=== PATIENT | female | born 1995 | race American Indian/Alaskan Native ===

== ENCOUNTER 2017-11-30 14:43 | Outpatient (CLI) | payer SELFPAY ==
[2017-11-30 15:24] VITALS: BP 90/53
[2017-11-30] MEDS ORDERED: TYLENOL PO ONE (17:29)
[2017-11-30] MEDS ORDERED: LACTATED RINGERS 1,000 ML IV ONE (17:29)
--- NOTE | 2017-11-30 17:38 | Ultrasound Report ---
FINAL REPORT PROCEDURE: Obstetrical ultrasound. TECHNIQUE: Real-time transabdominal sonography of the uterus, placenta, amniotic fluid, adnexa, and fetus was performed with image documentation. Measurements were obtained to determine age/size. M-mode Doppler was used to document heartbeat. CPT 30103 HISTORY: , no care. COMPARISON: No prior studies are available for comparison. FINDINGS: There is a single viable fetus in cephalic presentation. Cardiac activity is documented at 125 beats per minute. There are no definite congenital anomalies. The placenta is grade 1 and fundal in location. The amniotic fluid index appears normal and measures 14.7 centimeters. The measured parameters are as follows: Biparietal diameter 7.6 centimeters, head circumference 28.9 centimeters, abdominal circumference 28.6 centimeters, femur length 6.4 centimeters. The calculated menstrual age is 32 weeks 0 days. The estimated date of confinement is 01/25/2018. IMPRESSION: Single viable fetus in cephalic presentation with a menstrual age of 32 weeks 0 days.
--- NOTE | 2017-11-30 17:40 | Ultrasound Report ---
FINAL REPORT PROCEDURE: Ultrasound biophysical profile without nonstress test. TECHNIQUE: Sonographic evaluation for breathing, movement, tone, and amniotic fluid volume was performed. CPT 54822 HISTORY: , no care, evaluate well-being. COMPARISON: No prior studies are available for comparison. FINDINGS: Amniotic fluid volume: 2. breathin. movement: 2. tone: 2. Score: 8 of 8. IMPRESSION: Normal biophysical profile.
[2017-11-30] MEDS ORDERED: BRETHINE SUB-Q ONE ×2 (19:08→19:30)
[2017-11-30 19:29] LABS: Bacteria,Urine 3+ /HPF (Negative); Bilirubin,Urine NEG (Negative); Blood,Urine NEG (Negative); Color,Urine Yellow (Yellow); Mucus,Urine 3+ /HPF; Protein,Urine <15 mg/dL mg/dL (Negative)
[2017-11-30 19:35] LABS: Amphetamine Screen,Urine PRESUMPTIVE NEGATIVE; Benzodiazepines Screen,Urine PRESUMPTIVE NEGATIVE; Cannabinoid Screen,Urine PRESUMPTIVE NEGATIVE; Cocaine Screen,Urine PRESUMPTIVE NEGATIVE; Methadone Screen,Urine PRESUMPTIVE NEGATIVE; Opiate Screen,Urine PRESUMPTIVE NEGATIVE
== END 2017-11-30 20:30 | disposition home or self-care (01) ==
LOC: TRG 14:43
PROVIDERS: ATTEND Obstetrics & Gynecology
DX: O47.03 False labor before 37 completed weeks of gestation, third trimester (principal); Z3A.32 32 weeks gestation of pregnancy
CPT/HCPCS: 59025; 76805; 76819; 80307; 81001; J3105; J7120; 96360; 96361; 96372

== ENCOUNTER 2018-01-28 07:29 | Inpatient (IN) | payer OTHER ==
[2018-01-28] MEDS ORDERED: LACTATED RINGERS 2,000 ML ONE (07:56)
[2018-01-28 08:21] LABS: Basophils % (Auto) 0.4 % (0.0-1.8); Eosinophils # (Auto) 0.2 K/mm3 (0.0-0.4); Eosinophils % (Auto) 1.5 % (0.0-4.3); Hematocrit 28.4 % (30.3-42.9); Hemoglobin 9.1 gm/dl (10.1-14.3); Lymphocytes # (Auto) 2.4 K/mm3 (1.2-5.4); Lymphocytes % (Auto) 21.1 % (13.4-35.0); Mean Corpuscular HGB Conc 32 % (30-34); Mean Corpuscular Hemoglobin 26 pg (28-32); Mean Corpuscular Volume 82 fl (79-97); Monocytes # (Auto) 0.7 K/mm3 (0.0-0.8); Monocytes % (Auto) 5.9 % (0.0-7.3); Platelet Count 241 K/mm3 (140-440); Red Blood Count 3.49 M/mm3 (3.65-5.03); Red Cell Distribution Width 14.7 % (13.2-15.2)
--- NOTE | 2018-01-28 08:23 | Anesthesia Day of Surgery ---
Anesthesia Day of Surgery - Day of Surgery Patient Examined: Yes Patient H&P Reviewed: Yes Patient is NPO: Yes
--- NOTE | 2018-01-28 08:23 | Anesthesia Consultation ---
Anesthesia Consult and Med Hx Date of service: 01/28/18 - Airway Anesthetic Teeth Evaluation: Good ROM Head & Neck: Adequate Mental/Hyoid Distance: Adequate Mallampati Class: Class II Intubation Access Assessment: Probably Good - Pre-Operative Health Status ASA Pre-Surgery Classification: ASA2 Proposed Anesthetic Plan: Epidural, Spinal - Pulmonary Hx Asthma: No COPD: No Hx Pneumonia: No - Cardiovascular System Hx Hypertension: No - Central Nervous System Hx Seizures: No Hx Psychiatric Problems: No - Endocrine Hx Renal Disease: No Hx End Stage Renal Disease: No Hx Hypothyroidism: No Hx Hyperthyroidism: No - Hematic Hx Anemia: No Hx Sickle Cell Disease: No - Other Systems Hx Alcohol Use: No
[2018-01-28] MEDS ORDERED: NARCAN 0.4 MG/1 ML IV PRN ×2 (08:30→11:00)
[2018-01-28] MEDS ORDERED: BICITRA PO NR (08:30)
[2018-01-28] MEDS ORDERED: REGLAN IV NR ×2 (08:30→09:00)
[2018-01-28] MEDS ORDERED: ANCEF/STERILE WATER 2 GM/20 ML 2 GM/20 ML SYRINGE IV NR (08:30)
[2018-01-28] MEDS ORDERED: BENADRYL IV PRN (08:30)
[2018-01-28] MEDS ORDERED: PHENERGAN PR PRN (08:30)
[2018-01-28] MEDS ORDERED: DILAUDID IV PRN (08:30)
[2018-01-28] MEDS ORDERED: PEPCID IV NR (08:30)
--- NOTE | 2018-01-28 08:39 | History and Physical Report ---
History of Present Illness Date of examination: 01/28/18 Date of admission: 01/28/18 08:19 Chief complaint: I broke my water and in labor History of present illness: 22 yo at weeks EDC 01/16/18 came in by EMS complaining of contractions and leaking since 7a. She has no care. She has not seen a physician for this . Patient was monitored with contractions and low baseline 120s. She denies any medical problems but she has allergy to latex. Her last was for questionable NRFT and sustained a csec. previous prior to that was a . Past History Past Medical History: no pertinent history Past Surgical History: section Family/Genetic History: none Social history: single. denies: smoking, alcohol abuse, prescription drug abuse - Obstetrical History Expected Date of Delivery: 01/16/18 Actual Gestation: 41 Week(s) 5 Day(s) : 3 Para: 2 Hx # Term Pregnancies: 2 Number of Pregnancies: 0 Spontaneous Abortions: 0 Induced : 0 Number of Living Children: 2 Medications and Allergies Allergies Allergy/AdvReac Type Severity Reaction Status Date / Time Latex, Natural Rubber AdvReac Intermediate Itching Verified 06/26/14 15:45 Home Medications Medication Instructions Recorded Confirmed Last Taken Type Vits96/Iron Fum/Folic 1 each PO QDAY 09/17/14 01/28/18 01/27/18 09:00 History [ Tablet] 1 Active Meds: Active Medications Citric Acid/Sodium Citrate (Bicitra) 30 ml PO ONCE NR Stop: 01/28/18 15:00 Diphenhydramine HCl (Benadryl) 12.5 mg IV Q2H PRN PRN Reason: Itching Famotidine (Pepcid) 20 mg IV ONCE NR Stop: 01/28/18 15:00 Hydromorphone HCl (Dilaudid) 0.5 mg IV Q5M PRN PRN Reason: Breakthrough Pain Stop: 01/28/18 15:00 Cefazolin Sodium (Ancef/Sterile Water 2 Gm/20 Ml) 2 gm in 20 mls @ 80 mls/hr IV PREOP NR; Protocol Stop: 01/28/18 15:00 Lactated Ringer's (Lactated Ringers) 1,000 mls @ 2,250 mls/hr IV PREOP GAIL Stop: 01/29/18 09:27 Oxytocin/Sodium Chloride (Pitocin/Ns 20 Unit/1000ml Drip) 20 units in 1,000 mls @ 0 mls/hr IV TITR GAIL Ketorolac Tromethamine (Toradol) 30 mg IV Q6H PRN PRN Reason: Pain, Moderate (4-6) Stop: 02/02/18 08:59 Metoclopramide HCl (Reglan) 10 mg IV ONCE NR Stop: 01/28/18 15:00 Naloxone HCl (Narcan 0.4 Mg/1 Ml) 0.2 mg IV Q2MIN PRN PRN Reason: Res Rate </= 8 or 02 SAT < 92% Ondansetron HCl (Zofran) 4 mg IV Q8H PRN PRN Reason: Nausea And Vomiting Promethazine HCl (Phenergan) 25 mg PO Q6H PRN PRN Reason: Nausea And Vomiting Promethazine HCl (Phenergan) 25 mg NV Q6H PRN PRN Reason: Nausea And Vomiting Sodium Chloride (Sodium Chloride Flush Syringe 10 Ml) 10 ml IV PRN PRN PRN Reason: flush Review of Systems All systems: negative Genitourinary: leakage of fluid, contractions - Vital Signs Vital signs: Vital Signs Pulse Pulse Ox 105 H 98 01/28/18 07:40 01/28/18 07:40 Temp Pulse Resp BP Pulse Ox 87 109/53 98 01/28/18 07:45 01/28/18 07:43 01/28/18 07:45 - Physical Exam Breasts: Positive: normal Cardiovascular: Regular rate, Normal S1 Lungs: Positive: Clear to auscultation Abdomen: Positive: normal appearance, soft, normal bowel sounds. Negative: distention, tenderness, guarding Genitourinary (Female): Positive: normal external genitalia, normal perenium Vulva: both: normal Vagina: Positive: normal moisture Uterus: Positive: normal size Anus/Rectum: Positive: normal perianal skin Extremities: Positive: normal Deep Tendon Reflex Grade: Normal +2 - Obstetrical FHR: auscultation normal Cervical Dilatation: 1 Uterine Contraction Pattern: Regular Uterine Tone Measurement Phase: Contraction Uterine Contraction Intensity: Moderate Results Result Diagrams: 01/28/18 07:30 Abnormal lab results 01/28/18 Range/Units 07:30 WBC 11.2 H (4.5-11.0) K/mm3 RBC 3.49 L (3.65-5.03) M/mm3 Hgb 9.1 L (10.1-14.3) gm/dl Hct 28.4 L (30.3-42.9) % MCH 26 L (28-32) pg Seg Neutrophils % 71.1 H (40.0-70.0) % Seg Neutrophils # 8.0 H (1.8-7.7) K/mm3 All other labs normal. Assessment and Plan A/P IUP 41+5 weeks post dates No care labs and IV initiated SROM with meconium contractions at 1cm GBS unknown discussed repeat csec with r/b/a of procedure reviewed which include but not limited to bleeding infection damage to pelvic and non pelvic organs risk of hysterectomy and she signed consents and voiced acceptance and will proceed to repeat csec Peds notified and will be at delivery
[2018-01-28 08:56] LABS: Rubella IgG Antibody Immune (Immune)
[2018-01-28] MEDS ORDERED: LACTATED RINGERS 1,000 ML IV SCH ×2 (09:00)
[2018-01-28] MEDS ORDERED: PHENERGAN PO PRN (09:00)
[2018-01-28] MEDS ORDERED: PITOCin/NS 20 UNIT/1000ML DRIP 20 UNITS/1,000 ML BAG IV SCH ×3 (09:00→11:00)
[2018-01-28] MEDS ORDERED: SODIUM CHLORIDE FLUSH SYRINGE 10 ML IV PRN ×2 (09:00→11:00)
[2018-01-28] MEDS ORDERED: ZOFRAN IV PRN (09:00)
[2018-01-28] MEDS ORDERED: NACL 0.9% IR ONE (09:15)
[2018-01-28] MEDS ORDERED: WATER FOR IRRIG STERILE IR ONE ×2 (09:15)
[2018-01-28] MEDS ORDERED: NEO SYNEPHRINE/NS Syringe(OR USE) IV ONE ×2 (09:35→09:53)
[2018-01-28] MEDS ORDERED: NACL 0.9% 1000 ML 1,000 ML ONE (09:36)
[2018-01-28] MEDS ORDERED: REGLAN ONE (10:15)
[2018-01-28] MEDS ORDERED: ZOFRAN ONE (10:16)
[2018-01-28] MEDS ORDERED: MORPHINE ONE ×2 (10:17)
[2018-01-28] MEDS ORDERED: DILAUDID ONE (10:19)
--- NOTE | 2018-01-28 10:30 | Operative Report ---
Operative Report Operative Report: DATE OF OPERATION: 01/28/18 PREOPERATIVE DIAGNOSES: 1. Prior section. 2. Declines vaginal after . 3. A 41+5 weeks gestation. 4. Thick meconium POSTOPERATIVE DIAGNOSES: 1. Prior section. 2. Declines vaginal after . 3. A 41+5 weeks gestation. 4. Thick meconium OPERATION PERFORMED: Repeat low transverse . SURGEON: Annemarie Hein MD ANESTHESIA: Spinal. ESTIMATED BLOOD LOSS: 700 mL. FINDINGS: A viable female weighing 3580g 7 pounds 14 oz COMPLICATIONS: None. DISPOSITION: Stable. DESCRIPTION OF OPERATION: After informed consent was obtained, the patient was brought back to the operative suite where adequate spinal anesthesia was obtained. The patient was then placed in the dorsal supine position and prepped and draped in the sterile fashion. A repeat Pfannenstiel skin incision was made with a blade and carried down through the subcutaneous tissues to the fascia, which was extended in the transverse fascia with Simpson scissors. The fascial incision was then dissected off the rectus muscles both bluntly and sharply. The rectus muscle was in the midline. The peritoneum was entered bluntly. The peritoneal incision was then extended both superiorly and inferiorly with good visualization of the underlying bowel and bladder. The bladder blade was placed, and the vesicouterine fascia was incised to create a bladder flap in a low transverse position. This was developed digitally. A low transverse uterine incision was made with the blade and carried down through the layers of the uterus until membranes bulged through the incision. The uterine incision was then extended digitally. Hand was placed inside the pelvis, and the head was brought up out of the pelvis and delivered atraumatically with gentle fundal pressure. Prior to the head being delivered, actually through the skin, the sound of the baby starting to cry was noted. After the head was delivered, the mouth and nares were aggressively bulb suctioned. Remainder of the was delivered, and the was passed to the awaiting nursing staff for additional care. Cord was doubly clamped and cut and cord blood was obtained. The placenta was then manually extracted, and the uterus was exteriorized. The uterus was cleaned of remaining clot. The uterine incision was readily identified and closed in two layers, first one with running locking followed by second imbricating layer of 0 Vicryl. The vesicouterine fascia was then reapproximated with 2-0 Vicryl. The adnexa were within normal limits. The uterus was placed back inside the pelvis. Copious irrigation and inspection of the incision was satisfactory. The peritoneum was then closed with 2-0 Vicryl in a running fashion. The fascia was closed with )0 PDS from one angle to the next. Subcutaneous tissues were copiously irrigated, and final bleeders were cauterized. The incision was then reapproximated with Koko needle. patient tolerated procedure well. Needle and lap counts correct.
[2018-01-28 10:49] LABS: Bilirubin,Urine NEG (Negative); Blood,Urine NEG (Negative); Color,Urine Yellow (Yellow); Mucus,Urine FEW /HPF; Protein,Urine <15 mg/dL mg/dL (Negative); Urobilinogen,Urine < 2.0 mg/dL (<2.0); WBC,Urine < 1.0 /HPF (0.0-6.0)
[2018-01-28 10:51] LABS: Hepatitis C Virus Antibody Non-Reactive (NonReactive)
[2018-01-28] MEDS ORDERED: MOTRIN PO PRN (11:00)
[2018-01-28] MEDS ORDERED: LANSINOH TP PRN (11:00)
[2018-01-28] MEDS ORDERED: MYLICON PO PRN (11:00)
[2018-01-28] MEDS ORDERED: TYLENOL PO PRN (11:00)
[2018-01-28] MEDS ORDERED: TUCKS PAD TP PRN (11:00)
[2018-01-28 11:02] LABS: Amphetamine Screen,Urine PRESUMPTIVE NEGATIVE; Benzodiazepines Screen,Urine PRESUMPTIVE NEGATIVE; Cannabinoid Screen,Urine PRESUMPTIVE NEGATIVE; Cocaine Screen,Urine PRESUMPTIVE NEGATIVE; Methadone Screen,Urine PRESUMPTIVE NEGATIVE; Opiate Screen,Urine PRESUMPTIVE NEGATIVE
[2018-01-28] MEDS: TORADOL IV PRN (11:30)
[2018-01-28] MEDS ORDERED: SENOKOT PO PRN (22:00)
[2018-01-28] MEDS ORDERED: MILK OF MAGNESIA PO PRN (22:00)
[2018-01-28 23:18] LABS: Hematocrit 24.4 % (30.3-42.9); Hemoglobin 7.7 gm/dl (10.1-14.3)
[2018-01-29] MEDS: TORADOL IV PRN (01:23)
[2018-01-29] MEDS ORDERED: BOOSTRIX IM ONE (06:00)
--- NOTE | 2018-01-29 08:29 | Progress Note ---
Assessment and Plan A/P POD 1 s/p repeat csec doing well hem 9-7.7 iron supplement continue Post op care advance diet mag citrate for BM Subjective - Subjective Date of service: 01/29/18 Principal diagnosis: s/p repeat csec Interval history: 22 yo at weeks EDC 01/16/18 came in by EMS complaining of contractions and leaking since 7a. She has no care. She has not seen a physician for this . Patient was monitored with contractions and low baseline 120s. She denies any medical problems but she has allergy to latex. Her last was for questionable NRFT and sustained a csec. previous prior to that was a . Patient reports: appetite normal, voiding normally, pain well controlled, flatus , ambulating normally : doing well, bottle feeding Objective - Vital Signs Latest vital signs: Vital Signs Temp Pulse Resp BP BP Pulse Ox 01/29/18 05:33 97.5 F L 76 95/48 01/29/18 01:53 16 01/29/18 01:23 18 01/29/18 01:05 98.8 F 85 16 93/46 01/28/18 21:50 98 F 80 18 97/48 01/28/18 16:02 98.0 F 70 20 106/55 97 01/28/18 11:55 97.7 F 67 16 102/50 98 01/28/18 11:42 69 92/50 01/28/18 11:41 83 90/51 01/28/18 11:39 67 98 01/28/18 11:37 98.1 F 01/28/18 11:36 67 88/51 01/28/18 11:34 83 97 01/28/18 11:29 71 99 01/28/18 11:24 77 98 01/28/18 11:22 79 19 93/55 99 01/28/18 11:21 76 93/55 01/28/18 11:19 79 100 01/28/18 11:14 70 100 01/28/18 11:09 75 100 01/28/18 11:07 79 16 98/56 100 01/28/18 11:06 70 98/56 01/28/18 11:04 69 99 01/28/18 11:02 67 91/53 01/28/18 10:59 62 99 05/03/18 10:57 67 99/59 05/03/18 10:54 62 99 01/28/18 10:53 61 90/54 01/28/18 10:52 74 18 91/53 100 01/28/18 10:49 73 99 01/28/18 10:47 83 95/59 01/28/18 10:45 66 101/56 01/28/18 10:42 64 18 90/54 99 01/28/18 10:37 67 15 95/59 99 01/28/18 10:32 97.4 F L 72 16 101/56 100 Intake and Output 01/28/18 01/29/18 01/29/18 23:59 07:59 15:59 Intake Total 360 Output Total 650 1400 Balance -650 -1040 Intake: Intake, Free Water 360 Output: Urine 650 1400 Indwelling Catheter 650 1400 Other: Total, Output Amount 650 400 - Exam Breasts: Present: normal Cardiovascular: Present: Regular rate, Normal S1 Lungs: Present: Clear to auscultation, Normal air movement Abdomen: Present: normal appearance, soft, normal bowel sounds. Absent: distention, tenderness, guarding Vulva: both: normal Uterus: Present: normal, firm, fundal height below umbilicus. Absent: bogginess , tenderness Extremities: Present: normal Deep Tendon Reflex Grade: Normal +2 Incision: Present: normal, dry, dressed - Labs Labs: Abnormal lab results 01/28/18 Range/Units 22:30 Hgb 7.7 L (10.1-14.3) gm/dl Hct 24.4 L (30.3-42.9) %
[2018-01-29] MEDS ORDERED: CITRATE OF MAGNESIA PO NR (08:45)
[2018-01-29] MEDS ORDERED: FEOSOL PO SCH (10:00)
[2018-01-29] MEDS: PRENATAL VITAMIN PO SCH (10:16)
[2018-01-29] MEDS: NORCO 5/325 PO PRN (10:16)
[2018-01-29] MEDS ORDERED: M-M-R II VACCINE SUB-Q ONE (11:00)
[2018-01-29] MEDS: FEOSOL PO SCH (18:10)
[2018-01-29] MEDS: PERCOCET 5/325 PO PRN (23:15)
[2018-01-30] MEDS: FEOSOL PO SCH ×2 (08:05→14:20)
[2018-01-30] MEDS: PRENATAL VITAMIN PO SCH (08:05)
[2018-01-30] MEDS: PERCOCET 5/325 PO PRN ×2 (08:05→14:20)
--- NOTE | 2018-01-30 14:41 | Progress Note ---
Assessment and Plan O: VSS Af PP H/H: 7.7/24.4 A: Stable POD #2 Anemia P: D/C home Subjective - Subjective Date of service: 01/30/18 Principal diagnosis: s/p repeat [facility] Patient reports: appetite normal, voiding normally, pain well controlled, ambulating normally : doing well, nursing well Objective - Vital Signs Latest vital signs: Vital Signs Temp Pulse Resp BP BP Pulse Ox 01/30/18 07:34 98.1 F 80 20 95/46 99 01/30/18 07:31 99/45 01/30/18 01:02 97.7 F 74 20 100/55 98 01/29/18 16:51 98.4 F 73 18 91/35 98 Intake and Output 01/29/18 01/30/18 01/30/18 22:59 06:59 14:59 Intake Total 360 360 360 Balance 360 360 360 Intake: Oral 360 360 360 Other: Total, Intake Amount 240 120 360 # Voids Void 1 1 1 - Exam Breasts: Present: deferred Abdomen: Present: normal appearance, soft, tenderness (post op). Absent: distention Uterus: Present: normal, firm, tenderness, fundal height above umbilicus (2 below U, ML). Absent: bogginess Extremities: Present: normal Incision: Present: normal, dry, intact, dressed
--- NOTE | 2018-01-30 14:43 | Discharge Summary ---
Providers - Providers Date of Admission: 01/28/18 08:19 Date of discharge: 01/30/18 Attending physician: CHAIM DUNLAP MD Primary care physician: [facility]NA[facility] Hospitalization Reason for admission: IUP at term Delivery: Procedure: repeat low transverse Episiotomy: none Laceration: none Incision: normal, dry, intact Other procedures: none complications: none Discharge diagnosis: IUP at term delivered Condition at discharge: Good Disposition: DC-01 TO HOME OR SELFCARE Plan - Discharge Medications Prescriptions: Docusate Sodium [Colace] 100 mg PO BID PRN #30 capsule PRN Reason: Constipation Ferrous Sulfate 325 mg PO BID #30 tablet. Ibuprofen [Motrin] 600 mg PO Q8H PRN #30 tablet PRN Reason: Pain oxyCODONE /ACETAMINOPHEN [Percocet 5/325] 1 tab PO Q6HR PRN #30 tablet PRN Reason: Pain - Provider Discharge Summary Activity: routine, no sex for 6 weeks, no heavy lifting 4 weeks, no strenuous exercise Diet: routine Instructions: routine Additional instructions: [] Smoking cessation referral if applicable(refer to patient education folder for contact #) [] Refer to [facility] Booklet Call your doctor immediately for: * Fever > 100.5 * Heavy vaginal bleeding ( >1 pad per hour) * Severe persistent headache * Shortness of breath * Reddened, hot, painful area to leg or breast * Drainage or odor from incision. * Keep incision clean and dry at all times and follow doctor's instructions regarding bathing/showering - Follow up plan Follow up: PRIMARY CAREMD [Primary Care Provider] - 14 Days (Incision Check)
[2018-01-30 17:09] VITALS: BP 94/58
[2018-01-30] MEDS: NORCO 5/325 PO PRN (19:55)
== END 2018-01-30 20:05 | disposition home or self-care (01) | DRG 766 ==
LOC: TRG 07:29 → APU 08:19 → OB 12:24
PROVIDERS: ADMIT Obstetrics & Gynecology; ATTEND Obstetrics & Gynecology
PROC: 10D00Z1 Extraction of Products of Conception, Low, Open Approach (ICD-10-PCS; principal; 2018-01-28)
DX: O34.211 Maternal care for low transverse scar from previous cesarean delivery (principal); Z3A.41 41 weeks gestation of pregnancy; Z37.0 Single live birth; O09.33 Supervision of pregnancy with insufficient antenatal care, third trimester; O77.0 Labor and delivery complicated by meconium in amniotic fluid; Z91.040 Latex allergy status; Z23 Encounter for immunization
CPT/HCPCS: 36415; 59025; 80307; 81001; 85014; 85018; 85025; 86592; 86706; 86762; 86803; 86850; 86900; 86901; 87806; 88307; 96360; 96374; J0690; J1170; J1885; J2270; J2370; J2405; J2590; J2765; J7030; J7120; Q0169

== ENCOUNTER 2018-06-16 21:09 | Emergency (ER) | payer MEDICAID ==
[2018-06-17 02:16] LABS: HCG Qualitative,Urine Positive (Negative)
[2018-06-17 02:20] LABS: Bilirubin,Urine NEG (Negative); Blood,Urine MOD (Negative); Color,Urine Yellow (Yellow); Mucus,Urine FEW /HPF; Protein,Urine <15 mg/dL mg/dL (Negative); Urobilinogen,Urine < 2.0 mg/dL (<2.0)
--- NOTE | 2018-06-17 03:34 | Emergency Department Report ---
ED Female HPI - General Chief complaint: Urogenital-Female Stated complaint: BLOOD IN URINE Time Seen by Provider: 06/17/18 03:26 Source: patient Mode of arrival: Ambulatory Limitations: No Limitations - History of Present Illness Initial comments: 22-year-old -[place] female comes to the emergency room complaining that she sees blood in her urine and suprapubic pain and lower back pain. Last menstrual period was 06/02/2018. Patient is 4 para 3 with last delivery in January. MD Complaint: vaginal bleeding, dysuria, pelvic pain -: days(s) (1) Location: suprapubic Severity: severe Severity scale (0 -10): 9 Quality: cramping Consistency: intermittent Improves with: none Worsens with: none Are you Now?: No Last Menstrual Period: 06/02/18 EDC: 03/09/19 - Related Data Sexually active: Yes : 4 Para: 3 Home Medications Medication Instructions Recorded Confirmed Last Taken Vits96/Iron Fum/Folic 1 each PO QDAY 09/17/14 01/28/18 01/27/18 09:00 [ Tablet] 1 Previous Rx's Medication Instructions Recorded Last Taken Type Docusate Sodium [Colace] 100 mg PO BID PRN #30 capsule 01/28/18 Unknown Rx Ferrous Sulfate 325 mg PO BID #30 tablet. 01/28/18 Unknown Rx Ibuprofen [Motrin] 600 mg PO Q8H PRN #30 tablet 01/28/18 Unknown Rx oxyCODONE /ACETAMINOPHEN [Percocet 1 tab PO Q6HR PRN #30 tablet 01/28/18 Unknown Rx 5/325] Allergies Allergy/AdvReac Type Severity Reaction Status Date / Time Latex, Natural Rubber AdvReac Intermediate Itching Verified 06/26/14 15:45 ED Review of Systems ROS: Stated complaint: BLOOD IN URINE Other details as noted in HPI Comment: All other systems reviewed and negative ED Past Medical Hx - Past Medical History Hx Hypertension: No Hx Congestive Heart Failure: No Hx Diabetes: No Hx Deep Vein Thrombosis: No Hx Renal Disease: No Hx Sickle Cell Disease: No Hx Seizures: No Hx Asthma: No Hx COPD: No Hx HIV: No - Social History Smoking Status: Current Every Day Smoker Substance Use Type: None - Medications Home Medications: Home Medications Medication Instructions Recorded Confirmed Last Taken Type Vits96/Iron Fum/Folic 1 each PO QDAY 09/17/14 01/28/18 01/27/18 09:00 History [ Tablet] 1 Docusate Sodium [Colace] 100 mg PO BID PRN #30 capsule 01/28/18 Unknown Rx Ferrous Sulfate 325 mg PO BID #30 tablet. 01/28/18 Unknown Rx Ibuprofen [Motrin] 600 mg PO Q8H PRN #30 tablet 01/28/18 Unknown Rx oxyCODONE /ACETAMINOPHEN [Percocet 1 tab PO Q6HR PRN #30 tablet 01/28/18 Unknown Rx 5/325] ED Physical Exam - General Limitations: No Limitations General appearance: alert, in no apparent distress - Head Head exam: Present: atraumatic, normocephalic - Eye Eye exam: Present: EOMI - ENT ENT exam: Present: mucous membranes moist - Respiratory Respiratory exam: Present: normal lung sounds bilaterally. Absent: respiratory distress - Cardiovascular Cardiovascular Exam: Present: regular rate, normal rhythm. Absent: systolic murmur, diastolic murmur, rubs, gallop - GI/Abdominal GI/Abdominal exam: Present: soft. Absent: distended, tenderness - External exam: Present: normal external exam Speculum exam: Present: vaginal bleeding Bi-manual exam: Present: adnexal tenderness. Absent: cervical motion tendernes - Extremities Exam Extremities exam: Present: normal inspection, full ROM. Absent: tenderness - Back Exam Back exam: Present: normal inspection - Neurological Exam Neurological exam: Present: alert, oriented X3 - Psychiatric Psychiatric exam: Present: normal affect, normal mood - Skin Skin exam: Present: warm, dry, intact, normal color. Absent: rash ED Course Vital Signs 06/16/18 06/17/18 21:25 03:55 Temperature 99.4 F Pulse Rate 92 H Respiratory 18 18 Rate Blood Pressure 99/68 Blood Pressure 117/52 [Left] O2 Sat by Pulse 99 99 Oximetry ED Medical Decision Making - Radiology Data Radiology results: report reviewed FINAL REPORT PROCEDURE: US OB TRANSVAGINAL TECHNIQUE: Real-time transvaginal sonography of the uterus, placenta, amniotic fluid, adnexa, and fetus was performed with image documentation. Measurements were obtained to determine age/size. M-mode Doppler was used to document heartbeat. HISTORY: positive test with pelvic pain COMPARISON: No prior studies are available for comparison. FINDINGS: There is a sac-like structure in the endometrial cavity measuring 2.2 x 1.8 centimeters in diameter. The there is echogenic fluid in the cavity. This could be an abnormal gestational sac. No evidence of pole or yolk sac is seen. Uterus measures 9 x 4.9 x 5.5 centimeters. The endometrium measures 12.2 millimeters in thickness. Right ovary measures 3.2 x 2.6 x 3.1 centimeters and contains a 2.7 centimeter cyst. The left ovary measures 4.5 x 4 x 4.4 centimeters. There are 3 complex cystic areas measuring up to 2.2 centimeters which could be hemorrhagic cysts. There is no specific evidence of ovarian torsion or ectopic . There is moderate free pelvic fluid. Correlation with serial beta HCG measurements may be helpful. IMPRESSION: There is a sac-like structure in the endometrial cavity measuring 2.2 x 1.8 centimeters in diameter. The there is echogenic fluid in the cavity. This could be an abnormal gestational sac. No evidence of pole or yolk sac is seen. Right ovary measures 3.2 x 2.6 x 3.1 centimeters and contains a 2.7 centimeter cyst. The left ovary measures 4.5 x 4 x 4.4 centimeters. There are 3 complex cystic areas measuring up to 2.2 centimeters which could be hemorrhagic cysts. There is no specific evidence of ovarian torsion or ectopic . There is moderate free pelvic fluid. Correlation with serial beta HCG measurements may be helpful. Transcribed By: CO Dictated By: JOSE WORTHINGTON MD Electronically Authenticated By: JOSE WORTHINGTON MD Signed Date/Time: 06/17/18602 DD/ 2 TD/TT: 06/17/18602 - Medical Decision Making And evaluated by this provider fast track. HCG 1300 Discussed patient to follow-up on Thursday with her [facility] provider. Discussed patient she needs to have another hCG and ultrasound. Critical care attestation.: If time is entered above; I have spent that time in minutes in the direct care of this critically ill patient, excluding procedure time. ED Disposition Clinical Impression: Qualifiers: Weeks of gestation: less than 8 weeks Qualified Code(s): Z3A.01 - Less than 8 weeks gestation of Disposition: DC-01 TO HOME OR SELFCARE Is pt being admited?: No Does the pt Need Aspirin: No Condition: Stable Instructions: (ED) Additional Instructions: Please follow up with your OB on Thursday to have repeat blood work and ultrasound. Referrals: CHAPARRITA DUNLAP MD [Primary Care Provider] - 3-5 Days [facility] [Provider Group] - 3-5 Days
[2018-06-17 03:55] VITALS: BP 117/52
--- NOTE | 2018-06-17 05:58 | Ultrasound Report ---
FINAL REPORT PROCEDURE: US OB < = 14 WEEKS FETUS TECHNIQUE: Real-time transabdominal sonography of the uterus, placenta, amniotic fluid, adnexa, and fetus was performed with image documentation. Measurements were obtained to determine age/size. M-mode Doppler was used to document heartbeat. CPT 87542 HISTORY: positive test with pelvic pain COMPARISON: No prior studies are available for comparison. FINDINGS: There is a sac-like structure in the endometrial cavity measuring 2.2 x 1.8 centimeters in diameter. The there is echogenic fluid in the cavity. This could be an abnormal gestational sac. No evidence of pole or yolk sac is seen. Uterus measures 9 x 4.9 x 5.5 centimeters. The endometrium measures 12.2 millimeters in thickness. Right ovary measures 3.2 x 2.6 x 3.1 centimeters and contains a 2.7 centimeter cyst. The left ovary measures 4.5 x 4 x 4.4 centimeters. There are 3 complex cystic areas measuring up to 2.2 centimeters which could be hemorrhagic cysts. There is no specific evidence of ovarian torsion or ectopic . There is moderate free pelvic fluid. Correlation with serial beta HCG measurements may be helpful. IMPRESSION: There is a sac-like structure in the endometrial cavity measuring 2.2 x 1.8 centimeters in diameter. The there is echogenic fluid in the cavity. This could be an abnormal gestational sac. No evidence of pole or yolk sac is seen. Right ovary measures 3.2 x 2.6 x 3.1 centimeters and contains a 2.7 centimeter cyst. The left ovary measures 4.5 x 4 x 4.4 centimeters. There are 3 complex cystic areas measuring up to 2.2 centimeters which could be hemorrhagic cysts. There is no specific evidence of ovarian torsion or ectopic . There is moderate free pelvic fluid. Correlation with serial beta HCG measurements may be helpful.
--- NOTE | 2018-06-17 06:05 | Ultrasound Report ---
FINAL REPORT PROCEDURE: US OB TRANSVAGINAL TECHNIQUE: Real-time transvaginal sonography of the uterus, placenta, amniotic fluid, adnexa, and fetus was performed with image documentation. Measurements were obtained to determine age/size. M-mode Doppler was used to document heartbeat. HISTORY: positive test with pelvic pain COMPARISON: No prior studies are available for comparison. FINDINGS: There is a sac-like structure in the endometrial cavity measuring 2.2 x 1.8 centimeters in diameter. The there is echogenic fluid in the cavity. This could be an abnormal gestational sac. No evidence of pole or yolk sac is seen. Uterus measures 9 x 4.9 x 5.5 centimeters. The endometrium measures 12.2 millimeters in thickness. Right ovary measures 3.2 x 2.6 x 3.1 centimeters and contains a 2.7 centimeter cyst. The left ovary measures 4.5 x 4 x 4.4 centimeters. There are 3 complex cystic areas measuring up to 2.2 centimeters which could be hemorrhagic cysts. There is no specific evidence of ovarian torsion or ectopic . There is moderate free pelvic fluid. Correlation with serial beta HCG measurements may be helpful. IMPRESSION: There is a sac-like structure in the endometrial cavity measuring 2.2 x 1.8 centimeters in diameter. The there is echogenic fluid in the cavity. This could be an abnormal gestational sac. No evidence of pole or yolk sac is seen. Right ovary measures 3.2 x 2.6 x 3.1 centimeters and contains a 2.7 centimeter cyst. The left ovary measures 4.5 x 4 x 4.4 centimeters. There are 3 complex cystic areas measuring up to 2.2 centimeters which could be hemorrhagic cysts. There is no specific evidence of ovarian torsion or ectopic . There is moderate free pelvic fluid. Correlation with serial beta HCG measurements may be helpful.
== END 2018-06-17 07:00 | disposition home or self-care (01) ==
LOC: ED 21:09
DX: O26.891 Other specified pregnancy related conditions, first trimester (principal); O46.91 Antepartum hemorrhage, unspecified, first trimester; O99.331 Smoking (tobacco) complicating pregnancy, first trimester; R10.2 Pelvic and perineal pain; M54.5 Low back pain; Z3A.01 Less than 8 weeks gestation of pregnancy; Z91.040 Latex allergy status; Z91.09 Other allergy status, other than to drugs and biological substances
CPT/HCPCS: 36415; 76801; 76817; 81001; 81025; 84702

== ENCOUNTER 2019-06-12 20:45 | Emergency (ER) | payer MEDICAID ==
--- NOTE | 2019-06-12 21:37 | Emergency Department Report ---
ED Anxiety HPI - General Chief Complaint: Anxiety Stated Complaint: ANXIETY Time Seen by Provider: 06/12/19 21:10 Source: patient (23 yo F ), EMS Mode of arrival: Stretcher - History of Present Illness Initial Comments: 23 yo F, , currently 7 mos presents to the ED with anxiety. Pt's friend states they were at her house and patient began to have an anxiety attack. Patient states she has been having anxiety attacks over the last 3 days, believes they are triggered by her kids. States she is upset about the fact that she has 3 kids at home, [address], and no help at home. Patient denies SI, HI. States she recently broke up with the father of her children approx 1 week ago. States his birthday was a few days ago and she found out that he spent his birthday with another girl. Pt reports SOB tonight, felt like she could not talk. Denies chest pain. States symptoms have currently resolved. Pt denies abdominal pain, reports movement. No care for this because she states she has no one to watch her children. Her children are ages 4, 3, and 1 yrs of age. MD Complaint: anxiety -: This evening Symptoms: dyspnea, sense of impending doom Place: home Previous History of Same: Yes Severity: moderate Quality: improving, similar to prior episodes Provoking factors: emotional stress Improves With: nothing Worsens With: nothing Associated symptoms: shortness of breath, palpitations. denies: chest pain - Related Data Home Medications: Home Medications Medication Instructions Recorded Confirmed Last Taken Vits96/Iron Fum/Folic 1 each PO QDAY 09/17/14 01/28/18 01/27/18 09:00 [ Tablet] 1 Previous Rx's Medication Instructions Recorded Last Taken Type Docusate Sodium [Colace] 100 mg PO BID PRN #30 capsule 01/28/18 Unknown Rx Ferrous Sulfate 325 mg PO BID #30 tablet. 01/28/18 Unknown Rx Ibuprofen [Motrin] 600 mg PO Q8H PRN #30 tablet 01/28/18 Unknown Rx oxyCODONE /ACETAMINOPHEN [Percocet 1 tab PO Q6HR PRN #30 tablet 01/28/18 Unknown Rx 5/325] Allergies/Adverse Reactions: Allergies Allergy/AdvReac Type Severity Reaction Status Date / Time Latex, Natural Rubber AdvReac Intermediate Itching Verified 06/26/14 15:45 ED Review of Systems ROS: Stated complaint: ANXIETY Other details as noted in HPI Comment: All other systems reviewed and negative Respiratory: shortness of breath Cardiovascular: palpitations. denies: chest pain Gastrointestinal: denies: abdominal pain Neurological: headache ED Past Medical Hx - Past Medical History Hx Hypertension: No Hx Congestive Heart Failure: No Hx Diabetes: No Hx Deep Vein Thrombosis: No Hx Renal Disease: No Hx Sickle Cell Disease: No Hx Seizures: No Hx Asthma: No Hx COPD: No Hx HIV: No - Surgical History Past Surgical History?: No - Social History Smoking Status: Current Every Day Smoker Substance Use Type: None - Medications Home Medications: Home Medications Medication Instructions Recorded Confirmed Last Taken Type Vits96/Iron Fum/Folic 1 each PO QDAY 09/17/14 01/28/18 01/27/18 09:00 History [ Tablet] 1 Docusate Sodium [Colace] 100 mg PO BID PRN #30 capsule 01/28/18 Unknown Rx Ferrous Sulfate 325 mg PO BID #30 tablet. 01/28/18 Unknown Rx Ibuprofen [Motrin] 600 mg PO Q8H PRN #30 tablet 01/28/18 Unknown Rx oxyCODONE /ACETAMINOPHEN [Percocet 1 tab PO Q6HR PRN #30 tablet 01/28/18 Unknown Rx 5/325] ED Physical Exam - General Limitations: Other General appearance: alert, in no apparent distress - Head Head exam: Present: atraumatic, normocephalic - Eye Eye exam: Present: normal appearance, PERRL, EOMI - ENT ENT exam: Present: mucous membranes moist - Neck Neck exam: Present: normal inspection - Respiratory Respiratory exam: Present: normal lung sounds bilaterally. Absent: respiratory distress - Cardiovascular Cardiovascular Exam: Present: regular rate, normal rhythm - GI/Abdominal GI/Abdominal exam: Present: soft, other (gravid abdomen; obvious movement; heart tones present and normal). Absent: tenderness - Extremities Exam Extremities exam: Present: normal inspection - Neurological Exam Neurological exam: Present: alert, oriented X3, CN II-XII intact. Absent: motor sensory deficit - Psychiatric Psychiatric exam: Present: depressed. Absent: homicidal ideation, suicidal ideation - Skin Skin exam: Present: warm, dry, intact, normal color ED Course Vital Signs 09/15/19 20:53 Temperature 98.3 F Pulse Rate 81 Respiratory 26 H Rate Blood Pressure 112/61 [Left] O2 Sat by Pulse 99 Oximetry ED Medical Decision Making - Medical Decision Making 23 yo F, currently 7 months , no care this , presents to the ED following an anxiety attack. Pt is stressed about recent breakup with her children's father and the fact that she does not have help taking care of her 3 children. Anxiety attacks began following their breakup and pt finding out that he has been spending time with another woman. Pt denies SI, HI. Currently feeling much better. Instructed pt to call her CULTURIST tomorrow and make an appointment. Return precautions given. - Differential Diagnosis anxiety Critical care attestation.: If time is entered above; I have spent that time in minutes in the direct care of this critically ill patient, excluding procedure time. ED Disposition Clinical Impression: Anxiety, Disposition: DC-01 TO HOME OR SELFCARE Is pt being admited?: No Condition: Stable Instructions: (ED), Anxiety (ED) Referrals: CHAIM DUNLAP MD [Staff Physician] - 3-5 Days [facility] [Outside] - 3-5 Days Time of Disposition: 22:42
[2019-06-12 21:54] LABS: Bacteria,Urine 1+ /HPF (Negative); Bilirubin,Urine NEG (Negative); Blood,Urine NEG (Negative); Color,Urine Straw (Yellow); Mucus,Urine FEW /HPF; Protein,Urine <15 mg/dL mg/dL (Negative); Urobilinogen,Urine < 2.0 mg/dL (<2.0)
[2019-06-12] MEDS ORDERED: TYLENOL PO ONE (22:07)
[2019-06-12 23:15] VITALS: BP 108/73
== END 2019-06-12 23:13 | disposition home or self-care (01) ==
LOC: ED 20:45
DX: O99.341 Other mental disorders complicating pregnancy, first trimester (principal); F41.9 Anxiety disorder, unspecified; Z3A.01 Less than 8 weeks gestation of pregnancy; O99.331 Smoking (tobacco) complicating pregnancy, first trimester; Z79.899 Other long term (current) drug therapy; Z91.040 Latex allergy status; Z91.09 Other allergy status, other than to drugs and biological substances
CPT/HCPCS: 81001

== ENCOUNTER 2019-08-10 05:53 | Outpatient (CLI) | payer MEDICAID ==
[2019-08-10] MEDS ORDERED: LACTATED RINGERS 1,000 ML IV ONE (06:31)
[2019-08-10 07:51] LABS: Hematocrit 30.7 % (30.3-42.9); Hemoglobin 9.7 gm/dl (10.1-14.3); Mean Corpuscular HGB Conc 32 % (30-34); Mean Corpuscular Volume 85 fl (79-97); Platelet Count 268 K/mm3 (140-440); Red Blood Count 3.61 M/mm3 (3.65-5.03)
[2019-08-10] MEDS ORDERED: BUTORPHANOL 2 MG/1 ML INJ IV PRN (08:30)
[2019-08-10 08:39] LABS: Bacteria,Urine 1+ /HPF (Negative); Bilirubin,Urine NEG (Negative); Blood,Urine SM (Negative); Color,Urine Straw (Yellow); Mucus,Urine FEW /HPF; Protein,Urine <15 mg/dL mg/dL (Negative); Urobilinogen,Urine < 2.0 mg/dL (<2.0)
[2019-08-10] MEDS ORDERED: TERBUTALINE 1 MG/1 ML INJ SUB-Q ONE (09:00)
[2019-08-10] MEDS ORDERED: LACTATED RINGERS 1,000 ML IV SCH (09:00)
[2019-08-10] MEDS ORDERED: diphenhydrAMINE 50 MG/ML VIAL IV ONE (10:00)
[2019-08-10] MEDS ORDERED: cefTRIAXone/NS 1 GM/50 ML 1 GM/50 ML BAG IV SCH (10:00)
[2019-08-10 10:11] VITALS: BP 119/68
== END 2019-08-10 11:42 | disposition home or self-care (01) ==
LOC: TRG 05:53
PROVIDERS: ATTEND Obstetrics & Gynecology
DX: O62.9 Abnormality of forces of labor, unspecified (principal); O13.3 Gestational [pregnancy-induced] hypertension without significant proteinuria, third trimester; O99.013 Anemia complicating pregnancy, third trimester; D64.9 Anemia, unspecified; Z3A.38 38 weeks gestation of pregnancy
CPT/HCPCS: 36415; 59025; 81001; 85027; 86592; 86850; 86900; 86901; 96361; 96365; 96366; 96368; 96372; J0595; J0696; J1200; J3105; J7120; 96360

== ENCOUNTER 2019-08-11 04:24 | Inpatient (IN) | payer MEDICAID ==
[2019-08-11] MEDS ORDERED: FAMOTIDINE 20 MG/2 ML INJ IV ONE ×2 (04:33→04:36)
[2019-08-11] MEDS ORDERED: BICITRA ORAL LIQD 30ML PO ONE (04:33)
[2019-08-11] MEDS ORDERED: METOCLOPRAMIDE 10 MG/2 ML INJ IV ONE (04:33)
[2019-08-11] MEDS ORDERED: LACTATED RINGERS 2,000 ML ONE (04:34)
[2019-08-11] MEDS ORDERED: METOCLOPRAMIDE 10 MG/2 ML INJ ONE (04:35)
[2019-08-11] MEDS ORDERED: OXYTOCIN 20 UNIT/1000ML DRIP 40,000 MILLIUNITS/2,000 ML BAG IV ONE (04:35)
[2019-08-11] MEDS ORDERED: BICITRA ORAL LIQD 30ML ONE (04:35)
[2019-08-11] MEDS ORDERED: ceFAZolin/Water 2 GM/20 ML 2 GM/20 ML SYRINGE IV ONE (04:36)
[2019-08-11] MEDS ORDERED: LACTATED RINGERS 1,000 ML IV SCH (05:00)
[2019-08-11] MEDS ORDERED: OXYTOCIN 20 UNIT/1000ML DRIP 20 UNITS/1,000 ML BAG IV SCH ×2 (05:00→06:00)
[2019-08-11] MEDS ORDERED: ceFAZolin/Water 2 GM/20 ML 2 GM/20 ML SYRINGE IV NR (05:00)
[2019-08-11] MEDS ORDERED: ONDANSETRON 4 MG/2 ML INJ IV PRN (05:16)
[2019-08-11] MEDS ORDERED: HYDROmorphone 1 MG/1 ML INJ IV PRN (05:16)
--- NOTE | 2019-08-11 05:19 | Anesthesia Consultation ---
Anesthesia Consult and Med Hx Date of service: 08/11/19 - Airway Anesthetic Teeth Evaluation: Good ROM Head & Neck: Adequate Mental/Hyoid Distance: Adequate Mallampati Class: Class II Intubation Access Assessment: Probably Good - Pulmonary Exam CTA: Yes - Cardiac Exam Cardiac Exam: RRR - Pre-Operative Health Status ASA Pre-Surgery Classification: ASA2 Proposed Anesthetic Plan: Spinal - Pre-Anesthesia Comment Pre-Anesthesia Comments: PSH: CSECTION, ECTOPIC. NO ANESTHESIA COMPLICATIONS - Pulmonary Hx Smoking: No Hx Asthma: No Hx Respiratory Symptoms: No SOB: No COPD: No Home Oxygen Therapy: No Hx Pneumonia: No Hx Sleep Apnea: No - Cardiovascular System Hx Hypertension: No Hx Coronary Artery Disease: No Hx Heart Attack/AMI: No Hx Angina: No Hx Percutaneous Transluminal Coronary Angioplasty (PTCA): No Hx Cardia Arrhythmia: No Hx Pacemaker: No Hx Internal Defibrillator: No Hx Valvular Heart Disease: No Hx Heart Murmur: No Hx Peripheral Vascular Disease: No - Central Nervous System Hx Neuromuscular Disorder: No Hx Seizures: No CVA: No Hx Back Pain: No Hx Psychiatric Problems: No - Gastrointestinal Hx Ulcer: No Hx Gastroesophageal Reflux Disease: No - Endocrine Hx Renal Disease: No Hx End Stage Renal Disease: No Hx Cirrhosis: No Hx Liver Disease: No Hx Insulin Dependent Diabetes: No Hx Non-Insulin Dependent Diabetes: No Hx Thyroid Disease: No Hx Hypothyroidism: No Hx Hyperthyroidism: No - Hematic Hx Anemia: Yes Hx Sickle Cell Disease: No - Other Systems Hx Alcohol Use: No Hx Substance Use: No Hx Cancer: No Hx Obesity: No
--- NOTE | 2019-08-11 05:21 | Anesthesia Day of Surgery ---
Anesthesia Day of Surgery - Day of Surgery Patient Examined: Yes Patient H&P Reviewed: Yes Patient is NPO: No (LAST MEAL 0130 AND JUICE AT 0430) Beta Blockers: No Cardiac Clearance: No Pulmonary Clearance: No Ran's Test: N/A
--- NOTE | 2019-08-11 05:27 | History and Physical Report ---
History of Present Illness Date of examination: 08/11/19 Date of admission: 08/11/19 04:40 Chief complaint: contractions History of present illness: 23y/o @ 38+6 weeks presents to labor and delivery in active labor with advanced cervical dilation of 5cm. The patient has a history of 2 prior deliveries. records are not available for review. Past History Past Medical History: no pertinent history Past Surgical History: section [employer] SLURRY History: herpes Social history: single - Obstetrical History : 5 Para: 3 Hx # Term Pregnancies: 3 Number of Pregnancies: 0 Spontaneous Abortions: 0 Induced : 1 Number of Living Children: 3 Medications and Allergies Allergies Allergy/AdvReac Type Severity Reaction Status Date / Time Latex, Natural Rubber AdvReac Intermediate Itching Verified 06/26/14 15:45 Home Medications Medication Instructions Recorded Confirmed Last Taken Type Vits96/Iron Fum/Folic 1 each PO QDAY 09/17/14 01/28/18 01/27/18 09:00 History [ Tablet] 1 Docusate Sodium [Colace] 100 mg PO BID PRN #30 capsule 01/28/18 Unknown Rx Ferrous Sulfate 325 mg PO BID #30 tablet. 01/28/18 Unknown Rx Ibuprofen [Motrin] 600 mg PO Q8H PRN #30 tablet 01/28/18 Unknown Rx oxyCODONE /ACETAMINOPHEN [Percocet 1 tab PO Q6HR PRN #30 tablet 01/28/18 Unknown Rx 5/325] Active Meds: Active Medications Hydromorphone HCl (Dilaudid) 0.5 mg IV Q5M PRN PRN Reason: BREAK Stop: 08/11/19 23:59 Hydromorphone HCl (Dilaudid) 0.5 mg IV Q4H PRN PRN Reason: breakthrough pain > 7/10 Lactated Ringer's (Lactated Ringers) 1,000 mls @ 2,250 mls/hr IV PREOP GAIL Stop: 08/12/19 05:27 Last Admin: 08/11/19 04:45 Dose: 2,250 mls/hr Documented by: Oxytocin/Sodium Chloride (Pitocin/Ns 20 Unit/1000ml Drip) 20 units in 1,000 mls @ 0 mls/hr IV TITR GAIL Ondansetron HCl (Zofran) 4 mg IV Q8H PRN PRN Reason: Nausea And Vomiting Sodium Chloride (Sodium Chloride Flush Syringe 10 Ml) 10 ml IV PRN PRN PRN Reason: LINE FLUSH Review of Systems All systems: negative Genitourinary: pelvic pain, contractions - Vital Signs Vital signs: Vital Signs Temp Pulse BP 98 F 96 H 122/61 08/11/19 04:52 08/11/19 04:52 08/11/19 04:52 Temp Pulse Resp BP Pulse Ox 98 F 96 H 122/61 08/11/19 04:52 08/11/19 04:52 08/11/19 04:52 - Physical Exam Breasts: Positive: deferred Cardiovascular: Regular rate Lungs: Positive: Clear to auscultation Abdomen: Positive: normal appearance Results All other labs normal. Assessment and Plan - Patient Problems (1) Previous delivery affecting Current Visit: Yes Status: Acute Plan to address problem: admit and proceed with a repeat delivery (2) Active labor at term Current Visit: Yes Status: Acute
[2019-08-11 05:30] LABS: Basophils % (Auto) 0.4 % (0.0-1.8); Eosinophils # (Auto) 0.1 K/mm3 (0.0-0.4); Hematocrit 30.6 % (30.3-42.9); Hemoglobin 9.5 gm/dl (10.1-14.3); Lymphocytes # (Auto) 2.6 K/mm3 (1.2-5.4); Lymphocytes % (Auto) 20.7 % (13.4-35.0); Mean Corpuscular HGB Conc 31 % (30-34); Mean Corpuscular Volume 85 fl (79-97); Monocytes # (Auto) 0.9 K/mm3 (0.0-0.8); Platelet Count 275 K/mm3 (140-440); Red Blood Count 3.59 M/mm3 (3.65-5.03)
--- NOTE | 2019-08-11 05:31 | Procedure Note ---
OB Delivery Note - Delivery Date of Delivery: 08/11/19 Surgeon: AUTUMN COLMENARES Estimated blood loss: other (800ml) - Section Preop diagnosis: repeat Postop diagnosis: same section procedure: section, repeat low transverse Disposition: PACU Complications: none - Infant A at 1 minute: 8 at 5 minutes: 8 Infant Gender: Female (weight 8lbs 4oz)
[2019-08-11] MEDS ORDERED: NALOXONE 0.4 MG/1 ML INJ IV PRN (05:32)
[2019-08-11] MEDS ORDERED: LANOLIN/ZINC/DIMETHICONE (LANSINOH) 7 GM TP PRN (05:32)
[2019-08-11] MEDS ORDERED: WITCH HAZEL/ GLYCERIN PAD TP PRN (05:32)
[2019-08-11] MEDS ORDERED: MORPHINE 4 MG/1 ML INJ IV PRN (05:32)
[2019-08-11] MEDS ORDERED: ACETAMINOPHEN 325 MG TAB PO PRN (05:32)
[2019-08-11] MEDS ORDERED: D5W/LACTATED RINGERS 1,000 ML IV SCH (06:00)
--- NOTE | 2019-08-11 06:38 | Operative Report ---
Operative Report Operative Report: Date of surgery: 08/11/2019 Preoperative diagnosis: at 38+6 weeks; previous delivery; active labor at term Postoperative diagnosis: Same as above Procedure: Repeat low transverse delivery Surgeon: Yajaira Suarez M.D. Anesthesia: Regional Estimated blood loss: 800 mL IV fluids: 500 mL Urine output: 300 mL Findings: Liveborn female with Apgars of 8 and 8 weight 8 lbs. 4 oz. Indications: 23-year-old at 30+6 weeks who presents in active labor with advanced cervical dilatation. The patient has a prior history of 2 previous deliveries. Procedure: The patient was taken to the operating room and given regional anesthesia without complication. She was prepped and draped in a normal sterile fashion. A Pfannenstiel skin incision was made down to layer the fascia which was nicked in the midline extended laterally with the Bovie cautery. The superior aspect of the rectus fascia was grasped with Ana Lilia clamps x2 and the rectus muscles off sharply. This was done in inferior fashion as well. The rectus muscle midline and peritoneum entered bluntly. An Héctor retractor was then inserted. A bladder blade was placed. The vesicouterine peritoneum was then entered sharply with Metzenbaum scissors. A bladder flap was created digitally. A low transverse uterine incision was then made and extended digitally. There was clear fluid upon entry into the uterine cavity. The head was delivered through the incision with fundal pressure. The cord was clamped and cut x2 and was passed off to pediatrics. The placenta was then manually extracted. The uterus was then exteriorized and cleared of clots and debris. The uterine incision was then closed in a running locked fashion with 0 Vicryl additional imbricating stitch was applied for 2 layer closure. The posterior cul-de-sac was then copiously irrigated. The uterus was replaced back into the abdomen and pelvis were the gutters were then irrigated. The Héctor retractor was then removed. The peritoneum was then reapproximated with 3-0 Vicryl incorporating the rectus muscle. The fascia was then closed with 0 Vicryl in a running fashion. The skin was then reapproximated with 3-0 Monocryl on a Koko needle subcuticular fashion. Steri-Strips to place across the incision and a Crede procedures performed at the end of the surgery. A pressure dressing was applied to the incision. The surgery productive of a liveborn female infant with Apgars of 8 and 8 weight 8 lbs. 4 oz. The patient was taken to the recovery room in stable condition. All sponge laps and needle counts correct x2.
[2019-08-11] MEDS ORDERED: DEXMEDETOMIDINE 200 MCG/2 ML VIAL IV ONE (06:40)
[2019-08-11] MEDS: HYDROmorphone 1 MG/1 ML INJ IV PRN ×2 (08:54→21:45)
--- NOTE | 2019-08-11 10:05 | Post Anesthesia Evaluation ---
- Post Anesthesia Evaluation Patient Participated: Yes Airway Patent: Yes Stable Respiratory Function: Yes Nausea/Vomiting: No Temp > 96.8F: Yes Pain Manageable: Yes Adequeate Hydration: Yes Anesthesia Complications: No Block Receding Appropriately: Yes Patient on Ventilator: No
[2019-08-11] MEDS: KETOROLAC 30 MG/1 ML INJ IV PRN (16:13)
[2019-08-11 19:25] LABS: Hematocrit 25.8 % (30.3-42.9); Hemoglobin 8.1 gm/dl (10.1-14.3)
[2019-08-12] MEDS: KETOROLAC 30 MG/1 ML INJ IV PRN (00:25)
[2019-08-12] MEDS: HYDROmorphone 1 MG/1 ML INJ IV PRN (06:06)
[2019-08-12] MEDS: oxyCODONE /ACETAMINOPHEN 5-325MG TAB PO PRN ×3 (08:45→22:41)
--- NOTE | 2019-08-12 14:34 | Progress Note ---
Assessment and Plan POD1 s/p repeat csec Doing well hgb 9.5-8.1 continue routine Subjective - Subjective Date of service: 08/12/19 Principal diagnosis: s/p repeat csec Patient reports: appetite normal, voiding normally, pain well controlled, flatus, ambulating normally [place]: doing well Objective - Vital Signs Latest vital signs: Vital Signs Temp Pulse Resp BP BP Pulse Ox 08/12/19 08:45 20 08/12/19 08:20 97.7 F 85 18 105/61 08/12/19 06:35 18 08/12/19 06:06 18 08/12/19 00:55 18 08/12/19 00:54 97.6 F 75 18 108/49 99 08/12/19 00:25 18 08/11/19 22:15 18 08/11/19 21:45 18 08/11/19 21:09 98.1 F 85 20 96/46 99 08/11/19 16:34 98.0 F 75 18 107/51 08/11/19 16:13 20 08/11/19 15:29 97.9 F 80 20 116/60 99 Intake and Output 08/11/19 08/12/19 08/12/19 23:59 07:59 15:59 Intake Total 480 480 Output Total 2400 Balance -1920 480 Intake: Oral 480 480 Output: Urine 2400 Indwelling Catheter 1800 Void 600 Other: Total, Intake Amount 480 480 Total, Output Amount 500 # Voids Void 1 - Exam Breasts: Present: normal Cardiovascular: Present: Regular rate, Normal S1 Lungs: Present: Clear to auscultation, Normal air movement Abdomen: Present: normal appearance, soft, normal bowel sounds. Absent: distention, tenderness, guarding Uterus: Present: normal, firm, fundal height below umbilicus. Absent: bogginess, tenderness Extremities: Present: normal Deep Tendon Reflex Grade: Normal +2 Incision: Present: normal, dry, intact - Labs Labs: Abnormal lab results 08/11/19 Range/Units 18:55 Hgb 8.1 L (10.1-14.3) gm/dl Hct 25.8 L (30.3-42.9) %
[2019-08-13] MEDS: oxyCODONE /ACETAMINOPHEN 5-325MG TAB PO PRN ×4 (05:07→20:03)
[2019-08-13] MEDS: IBUPROFEN 800 MG TAB PO PRN ×2 (10:05→23:35)
--- NOTE | 2019-08-13 11:14 | Progress Note ---
Assessment and Plan POD 2 s/p repeat csec Doing well hgb 9.5-8.1 continue routine Discharge home tomorrow Subjective - Subjective Date of service: 08/13/19 Principal diagnosis: s/p repeat csec Patient reports: appetite normal, voiding normally, pain well controlled, flatus, ambulating normally : doing well Objective - Vital Signs Latest vital signs: Vital Signs Temp Pulse Resp BP BP Pulse Ox 08/13/19 07:49 98.0 F 74 20 94/41 98 08/13/19 01:27 98.6 F 76 18 91/45 98 08/12/19 17:12 98.0 F 77 18 98/40 Intake and Output 08/12/19 08/13/19 08/13/19 23:59 07:59 15:59 Intake Total 840 240 240 Balance 840 240 240 Intake: Oral 480 240 240 Intake, Free Water 360 Other: Total, Intake Amount 480 240 240 # Voids Void 1 1 1 - Exam Breasts: Present: normal Cardiovascular: Present: Regular rate, Normal S1 Lungs: Present: Clear to auscultation, Normal air movement Abdomen: Present: normal appearance, soft, normal bowel sounds. Absent: distention, tenderness, guarding Vulva: both: normal Uterus: Present: normal, firm, fundal height below umbilicus. Absent: bogginess, tenderness Extremities: Present: normal Deep Tendon Reflex Grade: Normal +2 Incision: Present: normal, dry, intact
[2019-08-14] MEDS: oxyCODONE /ACETAMINOPHEN 5-325MG TAB PO PRN (05:57)
--- NOTE | 2019-08-14 09:27 | Progress Note ---
Assessment and Plan POD 3 s/p repeat csec Doing well hgb 9.5-8.1 continue routine Discharge home today Subjective - Subjective Date of service: 08/14/19 Principal diagnosis: s/p repeat csec Patient reports: appetite normal, voiding normally, pain well controlled, flatus, ambulating normally [place]: doing well Objective - Vital Signs Latest vital signs: Vital Signs Temp Pulse Resp BP Pulse Ox 08/14/19 07:48 98.2 F 71 20 92/47 99 08/13/19 23:17 98.2 F 75 20 95/50 98 08/13/19 15:58 97.4 F L 74 20 99/44 98 08/13/19 14:52 18 Intake and Output 08/13/19 08/14/19 08/14/19 23:59 07:59 15:59 Intake Total 360 Balance 360 Intake: Oral 360 Other: Total, Intake Amount 120 # Voids Void 1 1 - Exam Breasts: Present: normal Cardiovascular: Present: Regular rate, Normal S1 Lungs: Present: Clear to auscultation, Normal air movement Abdomen: Present: normal appearance, soft, normal bowel sounds. Absent: distent ion, tenderness, guarding Vulva: both: normal Uterus: Present: normal, firm, fundal height below umbilicus. Absent: bogginess, tenderness Extremities: Present: normal Deep Tendon Reflex Grade: Normal +2 Incision: Present: normal, dry, intact
--- NOTE | 2019-08-14 09:29 | Discharge Summary ---
Providers - Providers Date of Admission: 08/11/19 04:40 Date of discharge: 08/14/19 Attending physician: AUTUMN COLMENARES Primary care physician: AUTUMN COLMENARES Hospitalization Reason for admission: active labor Delivery: Procedure: repeat low transverse Episiotomy: none Laceration: none Incision: normal, dry, intact Other procedures: none complications: none Discharge diagnosis: IUP at term delivered baby: female Hospital course: Patient came in active labor and had a repeat csec. Did well f/u in 2 weeks for incision check Condition at discharge: Good Disposition: DC-01 TO HOME OR SELFCARE Plan - Discharge Medications Prescriptions: Ferrous Sulfate [Feosol 325 MG tab] 325 mg PO BID #30 tablet Ibuprofen [Motrin] 600 mg PO Q8H PRN #30 tablet PRN Reason: Pain oxyCODONE /ACETAMINOPHEN [Percocet 5/325] 1 tab PO Q6HR PRN #30 tablet PRN Reason: Pain - Provider Discharge Summary Additional instructions: [] Smoking cessation referral if applicable(refer to patient education folder for contact #) [] Refer to [facility] Book[facility] Call your doctor immediately for: * Fever > 100.5 * Heavy vaginal bleeding ( >1 pad per hour) * Severe persistent headache * Shortness of breath * Reddened, hot, painful area to leg or breast * Drainage or odor from incision. * Keep incision clean and dry at all times and follow doctor's instructions regarding bathing/showering - Follow up plan Follow up: AUTUMN COLMENARES MD [Primary Care Provider] - 7 Days
[2019-08-14] MEDS: IBUPROFEN 800 MG TAB PO PRN (10:25)
[2019-08-14 12:04] VITALS: BP 99/54
== END 2019-08-14 11:50 | disposition home or self-care (01) | DRG 765 ==
LOC: TRG 04:24 → LD 04:40 → OB 08:19
PROVIDERS: ADMIT Obstetrics & Gynecology; ATTEND Obstetrics & Gynecology
PROC: 10D00Z1 Extraction of Products of Conception, Low, Open Approach (ICD-10-PCS; principal; 2019-08-11)
DX: O34.211 Maternal care for low transverse scar from previous cesarean delivery (principal); D62 Acute posthemorrhagic anemia; Z3A.38 38 weeks gestation of pregnancy; Z37.0 Single live birth; Z91.040 Latex allergy status; Z91.09 Other allergy status, other than to drugs and biological substances; O99.02 Anemia complicating childbirth
CPT/HCPCS: 36415; 59025; 81001; 85014; 85018; 85025; 85027; 86592; 86850; 86900; 86901; 96360; 96361; 96365; 96366; 96368; 96372; G0378; J0595; J0690; J0696; J1170; J1200; J1885; J2270; J2590; J2765; J3105; J3490; J7120; J7121

== ENCOUNTER 2021-04-02 02:01 | Inpatient (IN) | payer MEDICAID ==
[2021-04-02] MEDS ORDERED: LACTATED RINGERS 1,000 ML ONE ×3 (03:00→09:22)
[2021-04-02] MEDS ORDERED: LACTATED RINGERS 1,000 ML IV ONE (03:14)
[2021-04-02] MEDS ORDERED: TERBUTALINE 1 MG/1 ML INJ SUB-Q ONE (03:18)
[2021-04-02 03:25] LABS: Hematocrit 27.3 % (30.3-42.9); Hemoglobin 8.8 gm/dl (10.1-14.3); Mean Corpuscular HGB Conc 32 % (30-34); Mean Corpuscular Volume 86 fl (79-97); Platelet Count 243 K/mm3 (140-440); Red Blood Count 3.18 M/mm3 (3.65-5.03); Red Cell Distribution Width 14.2 % (13.2-15.2)
[2021-04-02] MEDS ORDERED: FAMOTIDINE 20 MG/2 ML INJ IV ONE (04:24)
[2021-04-02] MEDS ORDERED: METOCLOPRAMIDE 10 MG/2 ML INJ IV ONE (04:24)
[2021-04-02] MEDS ORDERED: miSOPROStol 200 MCG TAB PR PRN (04:24)
[2021-04-02] MEDS ORDERED: METHYLERGONOVINE MALEATE 0.2 MG/ML VIAL IM PRN (04:24)
[2021-04-02] MEDS ORDERED: ePHEDrine SULFATE 50 MG/1 ML INJ IV PRN (04:24)
[2021-04-02] MEDS ORDERED: BICITRA ORAL LIQD 30ML PO ONE (04:24)
[2021-04-02] MEDS ORDERED: LOPERAMIDE 2 MG CAP PO PRN (04:24)
[2021-04-02] MEDS ORDERED: OXYTOCIN 10 UNIT/1 ML INJ IM PRN (04:24)
[2021-04-02] MEDS ORDERED: CARBOPROST TROMETHAMINE 250 MCG/1 ML INJ IM PRN (04:24)
[2021-04-02] MEDS ORDERED: LACTATED RINGERS 1,000 ML IV SCH ×2 (04:30)
[2021-04-02] MEDS ORDERED: dexAMETHasone 20 MG/5 ML VIAL ONE (04:49)
[2021-04-02] MEDS ORDERED: BUPIVACAINE/PF (0.5%) 5 MG/1 ML 30 ML VIAL INFILTRATI ONE (04:49)
[2021-04-02] MEDS ORDERED: KETOROLAC 30 MG/1 ML INJ ONE (04:49)
[2021-04-02] MEDS ORDERED: ONDANSETRON 4 MG/2 ML INJ ONE (04:49)
[2021-04-02] MEDS ORDERED: SODIUM CHLORIDE 0.9% 100 ML ONE (04:49)
[2021-04-02] MEDS ORDERED: PROMETHAZINE 25 MG RECT SUPP PR PRN (04:58)
[2021-04-02] MEDS ORDERED: ONDANSETRON 4 MG/2 ML INJ IV PRN (04:58)
[2021-04-02] MEDS ORDERED: PROMETHAZINE 25 MG TAB PO PRN (04:58)
[2021-04-02] MEDS ORDERED: HYDROmorphone 1 MG/1 ML INJ IV PRN (04:58)
[2021-04-02] MEDS ORDERED: diphenhydrAMINE 50 MG/ML VIAL IV PRN (04:58)
[2021-04-02] MEDS ORDERED: NalbUPHINE 10 MG/1 ML INJ IV PRN (04:58)
[2021-04-02] MEDS ORDERED: NALOXONE 0.4 MG/1 ML INJ IV PRN ×2 (04:58→05:18)
--- NOTE | 2021-04-02 04:59 | Anesthesia Day of Surgery ---
Anesthesia Day of Surgery - Day of Surgery Patient Examined: Yes Patient H&P Reviewed: Yes Patient is NPO: Yes Beta Blockers: No Cardiac Clearance: No Pulmonary Clearance: No Ran's Test: N/A
[2021-04-02] MEDS ORDERED: OXYTOCIN DRIP 30 UNITS/500 ML BAG IV SCH ×3 (05:00→06:00)
[2021-04-02] MEDS ORDERED: ceFAZolin/STERILE WATER 2 GM/20 ML SYRINGE IV NR (05:00)
--- NOTE | 2021-04-02 05:00 | Anesthesia Consultation ---
Anesthesia Consult and Med Hx Date of service: 04/02/21 - Airway Anesthetic Teeth Evaluation: Good ROM Head & Neck: Adequate Mental/Hyoid Distance: Adequate Mallampati Class: Class II Intubation Access Assessment: Probably Good - Pulmonary Exam CTA: Yes - Cardiac Exam Cardiac Exam: RRR - Pre-Operative Health Status ASA Pre-Surgery Classification: ASA2 Proposed Anesthetic Plan: Spinal Nerve Block: TAP - Pulmonary Hx Smoking: No Hx Asthma: No Hx Respiratory Symptoms: No SOB: No COPD: No Hx Pneumonia: No Hx Sleep Apnea: No - Cardiovascular System Hx Hypertension: No Hx Coronary Artery Disease: No Hx Heart Attack/AMI: No Hx Angina: No Hx Percutaneous Transluminal Coronary Angioplasty (PTCA): No Hx Cardia Arrhythmia: No Hx Pacemaker: No Hx Internal Defibrillator: No Hx Valvular Heart Disease: No Hx Heart Murmur: No Hx Peripheral Vascular Disease: No - Central Nervous System Hx Neuromuscular Disorder: No Hx Seizures: No CVA: No Hx Back Pain: No Hx Psychiatric Problems: No - Gastrointestinal Hx Ulcer: No Hx Gastroesophageal Reflux Disease: No - Endocrine Hx Renal Disease: No Hx End Stage Renal Disease: No Hx Cirrhosis: No Hx Liver Disease: No Hx Insulin Dependent Diabetes: No Hx Non-Insulin Dependent Diabetes: No Hx Thyroid Disease: No Hx Hypothyroidism: No Hx Hyperthyroidism: No - Hematic Hx Anemia: Yes Hx Sickle Cell Disease: No - Other Systems Hx Alcohol Use: No Hx Substance Use: No Hx Cancer: No Hx Obesity: No
--- NOTE | 2021-04-02 05:17 | History and Physical Report ---
History of Present Illness Date of examination: 04/02/21 Date of admission: 04/02/21 04:25 Chief complaint: leakage of fluid History of present illness: 25y/o @ 38+4 weeks presents with the complaint of leakage of fluid and uterine contractions. The patient has history of 3 prior deliveries and a salpingectomy for an ectopic . Past History Past Medical History: no pertinent history Past Surgical History: section [employer] History: herpes Social history: single - Obstetrical History Expected Date of Delivery: 04/12/21 Actual Gestation: 38 Week(s) 4 Day(s) : 6 Para: 4 Hx # Term Pregnancies: 4 Number of Pregnancies: 0 Spontaneous Abortions: 1 Induced : 0 Number of Living Children: 4 Medications and Allergies Allergies Allergy/AdvReac Type Severity Reaction Status Date / Time Latex, Natural Rubber AdvReac Intermediate Itching Verified 06/26/14 15:45 Home Medications Medication Instructions Recorded Confirmed Last Taken Type Vits96/Iron Fum/Folic 1 each PO QDAY 09/17/14 08/14/19 01/27/18 09:00 History [ Tablet] 1 Docusate Sodium [Colace] 100 mg PO BID PRN #30 capsule 01/28/18 08/14/19 Unknown Rx Ferrous Sulfate 325 mg PO BID #30 tablet. 01/28/18 08/14/19 Unknown Rx Ibuprofen [Motrin] 600 mg PO Q8H PRN #30 tablet 01/28/18 08/14/19 Unknown Rx oxyCODONE /ACETAMINOPHEN [Percocet 1 tab PO Q6HR PRN #30 tablet 01/28/18 08/14/19 Unknown Rx 5/325] Ferrous Sulfate [Feosol 325 MG tab] 325 mg PO BID #30 tablet 08/13/19 Unknown Rx Ibuprofen [Motrin] 600 mg PO Q8H PRN #30 tablet 08/13/19 Unknown Rx oxyCODONE /ACETAMINOPHEN [Percocet 1 tab PO Q6HR PRN #30 tablet 08/13/19 Unknown Rx 5/325] Active Meds: Active Medications Carboprost Tromethamine (Carboprost Tromethamine 250 Mcg/1 Ml Inj) 250 mcg IM ONCE PRN PRN Reason: Uterine Bleeding Diphenhydramine HCl (Diphenhydramine 50 Mg/Ml Vial) 12.5 mg IV Q2H PRN PRN Reason: Itching Ephedrine Sulfate (Ephedrine Sulfate 50 Mg/1 Ml Inj) 10 mg IV Q2M PRN PRN Reason: Hypotension Hydromorphone HCl (Hydromorphone 1 Mg/1 Ml Inj) 0.5 mg IV Q4H PRN PRN Reason: breakthrough pain > 7/10 Lactated Ringer's (Lactated Ringers) 1,000 mls @ 2,250 mls/hr IV PREOP GAIL Stop: 04/03/21 04:57 Oxytocin/Sodium Chloride (Pitocin/Ns 30 Unit/500ml) 30 units in 500 mls @ 0 mls/hr IV TITR GAIL; Protocol Lactated Ringer's (Lactated Ringers) 1,000 mls @ 125 mls/hr IV DIRECT GAIL Oxytocin/Sodium Chloride (Pitocin/Ns 30 Unit/500ml) 30 units in 500 mls @ 40 mls/hr IV TITR GAIL; Protocol Loperamide HCl (Loperamide 2 Mg Cap) 2 mg PO ONCE PRN PRN Reason: give with Hemabate Methylergonovine Maleate (Methylergonovine Maleate 0.2 Mg/Ml Vial) 0.2 mg IM ONCE PRN PRN Reason: Uterine Bleeding Misoprostol (Misoprostol 200 Mcg Tab) [address] ONCE PRN PRN Reason: Uterine Bleeding Nalbuphine HCl (Nalbuphine 10 Mg/1 Ml Inj) 2.5 mg IV Q2H PRN PRN Reason: Itching Naloxone HCl (Naloxone 0.4 Mg/1 Ml Inj) 0.2 mg IV Q2MIN PRN PRN Reason: Res Rate </= 8 or 02 SAT < 92% Ondansetron HCl (Ondansetron 4 Mg/2 Ml Inj) 4 mg IV Q8H PRN PRN Reason: Nausea And Vomiting Oxytocin (Oxytocin 10 Unit/1 Ml Inj) 10 unit IM ONCE PRN PRN Reason: Uterine Bleeding Promethazine HCl (Promethazine 25 Mg Tab) 25 mg PO Q6H PRN PRN Reason: Nausea And Vomiting Promethazine HCl (Promethazine 25 Mg Rect Supp) [address] Q6H PRN PRN Reason: Nausea And Vomiting Review of Systems All systems: negative Genitourinary: leakage of fluid, pelvic pain, contractions - Vital Signs Vital signs: Vital Signs Temp 98.8 F 04/02/21 02:32 Temp Pulse Resp BP Pulse Ox 98.8 F 115 H 107/59 100 04/02/21 02:32 04/02/21 05:09 04/02/21 02:46 04/02/21 05:09 - Physical Exam Breasts: Positive: deferred Cardiovascular: Regular rate Lungs: Positive: Clear to auscultation Abdomen: Positive: normal appearance Results Result Diagrams: 04/02/21 03:10 Abnormal lab results 04/02/21 04/02/21 Range/Units 03:10 03:10 WBC 12.9 H (4.5-11.0) K/mm3 RBC 3.18 L (3.65-5.03) M/mm3 Hgb 8.8 L (10.1-14.3) gm/dl Hct 27.3 L (30.3-42.9) % Membranes Rupture Positive A (Negative) All other labs normal. Assessment and Plan - Patient Problems (1) Spontaneous rupture of membranes Current Visit: Yes Status: Acute Plan to address problem: will proceed with a repeat and bilateral tubal ligation (2) Active labor at term Current Visit: No Status: Acute (3) Previous delivery affecting Current Visit: No Status: Acute
[2021-04-02] MEDS ORDERED: LANOLIN/ZINC/DIMETHICONE (LANSINOH) 7 GM TP PRN (05:18)
[2021-04-02] MEDS ORDERED: WITCH HAZEL/ GLYCERIN PAD TP PRN (05:18)
[2021-04-02] MEDS ORDERED: MORPHINE 4 MG/1 ML INJ IV PRN (05:19)
[2021-04-02] MEDS ORDERED: ACETAMINOPHEN 325 MG TAB PO PRN (05:19)
[2021-04-02] MEDS ORDERED: SIMETHICONE 80 MG CHEW TAB PO PRN (05:19)
--- NOTE | 2021-04-02 05:28 | Procedure Note ---
OB Delivery Note - Delivery Date of Delivery: 04/02/21 Surgeon: AUTUMN COLMENARES Estimated blood loss: other (600 mL) - Section Preop diagnosis: repeat , desires sterilization Postop diagnosis: same section procedure: section, repeat low transverse, bilateral tubal ligation Disposition: PACU Complications: none - A at 1 minute: 7 at 5 minutes: 8 Gender: Female (Weight 6 pounds 15 ounces)
[2021-04-02] MEDS ORDERED: ePHEDrine SULFATE 50 MG/1 ML INJ ONE (05:39)
[2021-04-02] MEDS ORDERED: PHENYLEPHRINE/NS 1,000 MCG/10 ML SYRINGE (OR USE) IV ONE (05:39)
[2021-04-02] MEDS ORDERED: WATER FOR IRRIG STERILE 1,500 ML BOTTLE IR ONE (05:46)
[2021-04-02] MEDS ORDERED: ceFAZolin/STERILE WATER 2 GM/20 ML SYRINGE IV ONE (05:46)
[2021-04-02] MEDS ORDERED: SODIUM CHLORIDE 0.9% IRR 1,500 ML BOTTLE IR ONE (05:46)
--- NOTE | 2021-04-02 06:31 | Operative Report ---
Operative Report Operative Report: Date of surgery: April 02, 2021 Preoperative diagnosis: at 38+4 weeks; previous delivery; s pontaneous rupture membranes; unwanted fertility Postoperative diagnosis: Same as above Procedure: Repeat low transverse delivery and tubal ligation via Dierks method Surgeon: Yajaira Suarez M.D. Anesthesia: Regional Estimated blood loss: 600 mL IV fluids: 1100 mL Urine output: 150 Findings: Liveborn female infant with Apgars of 7 and 8 weight 6 pounds 15 ounces Indications: 25-year-old -0-1-4 at 38+4 weeks who presents with spontaneous rupture membranes and regular uterine contractions. The patient has a history of 3 prior deliveries. Procedure: The patient was taken to the operating room and given regional anesthesia without complication. She was prepped and draped in a normal sterile fashion. A Pfannenstiel skin incision was made down to layer the fascia which was nicked in the midline extended laterally with the Bovie cautery. The superior aspect of the rectus fascia was grasped with Ana Lilia clamps x2 and the rectus muscles off sharply. This was done in inferior fashion as well. The rectus muscle midline and peritoneum entered bluntly. An Héctor retractor was then inserted. A bladder blade was placed. The vesicouterine peritoneum was then entered sharply with Metzenbaum scissors. A bladder flap was created digitally. A low transverse uterine incision was then made and extended digitally. There was clear fluid upon entry into the uterine cavity. The head was delivered through the incision with fundal pressure. The cord was clamped and cut x2 and infant was passed off to pediatrics. The placenta was then manually extracted. The uterus was then exteriorized and cleared of clots and debris. The uterine incision was then closed in a running locked fashion with 0 Vicryl additional imbricating stitch was applied for 2 layer closure. Attention was then turned to the patient's right tube which was grasped with a David. The ampullary portion of the tube was isolated. A window was created in the mesosalpinx. The distal and proximal areas of the ampullary tube were ligated x2 with 2-0 chromic. A 1 cm portion of tube was then excised. The patient has a surgically absent left fallopian tube. The posterior cul-de-sac was then copiously irrigated. The uterus was replaced back into the abdomen and pelvis were the gutters were then irrigated. The Héctor retractor was then removed. The peritoneum was then reapproximated with 3-0 Vicryl incorporating the rectus muscle. The fascia was then closed with 0 Vicryl in a running fashion. The skin was then reapproximated with 3-0 Monocryl on a Koko needle subcuticular fashion. Steri-Strips to place across the incision and a Crede procedures performed at the end of the surgery. A pressure dressing was applied to the incision. The surgery productive of a liveborn female infant with Apgars of 7 and 8 weight 6 pounds 15 ounces. The patient was taken to the recovery room in stable condition. All sponge laps and needle counts correct x2.
--- NOTE | 2021-04-02 06:55 | Progress Note ---
Spinal Anesthesia Block - Spinal Anesthesia Block Start Time: 05:21 Stop Time: 05:30 Performed by:: JEANNIE BONE Procedure: Spinal anesthesia block is being performed for [C/S]. H&P, labs have been reviewed. Patient's questions and concerns have been answered. Informed consent has been performed. Timeout has was performed. Patient in sitting position on side of bed. Sterile prep and drape was performed. 3 mL 1% lidocaine skin wheal at L [3]-L [4]. Needle introducer advanced. 25-gauge spinal needle advanced, [+] CSF [-] blood. [Marcaine 10mg and Precedex 5mcg] Spinal dose was given. All needles removed. Patient tolerated procedure well.
--- NOTE | 2021-04-02 06:56 | Progress Note ---
Regional Anesthesia Block - Regional Anesthesia Block Start Time: 06:41 Stop Time: 06:50 Performed By:: JEANNIE BONE Procedure: Patient consented for TAP block for post surgical pain management. Patient identified, monitors placed, and time out performed. Mid axillary TAP identified bilaterally via ultrasound. Skin prepped bilaterally with [chlorhexidine] and [20g stimuplex] needle advanced to the TAP. 30ml [Marcaine 0.25% with 25mcg Precedex and Decadron 5mg] injected under ultrasound guidance on the [left] side. 30ml [Marcaine 0.25% with 25mcg Precedex and Decadron 5mg] injected under ultrasound guidance on the [right] side. Negative aspiration every 5mL, Patient tolerated the procedure well. No apparent complications seen.
[2021-04-02] MEDS: KETOROLAC 30 MG/1 ML INJ IV PRN ×2 (11:27→18:07)
[2021-04-02] MEDS: oxyCODONE /ACETAMINOPHEN 5-325MG TAB PO PRN (12:40)
[2021-04-02] MEDS: HYDROmorphone 1 MG/1 ML INJ IV PRN ×2 (14:21→18:06)
[2021-04-02] MEDS: FERROUS SULFATE 325 MG TAB PO SCH (14:31)
[2021-04-02 16:51] LABS: Hematocrit 24.1 % (30.3-42.9); Hemoglobin 7.8 gm/dl (10.1-14.3)
[2021-04-03] MEDS: oxyCODONE /ACETAMINOPHEN 5-325MG TAB PO PRN ×4 (00:11→21:36)
[2021-04-03] MEDS: IBUPROFEN 600 MG TAB PO PRN ×2 (05:59→23:50)
[2021-04-03] MEDS: FERROUS SULFATE 325 MG TAB PO SCH (08:13)
--- NOTE | 2021-04-03 15:31 | Progress Note ---
Assessment and Plan Postop day 1 status post LTCS. Doing well. Continue routine postop care. Subjective - Subjective Date of service: 04/03/21 Principal diagnosis: Repeat Interval history: Postop day 1 status post repeat with BTL. Patient reports: appetite normal, voiding normally, pain well controlled, ambulating normally : doing well Objective - Vital Signs Latest vital signs: Vital Signs Temp Pulse Resp BP BP Pulse Ox 04/03/21 07:48 98.0 F 68 18 103/54 100 04/03/21 06:45 18 04/03/21 05:59 18 04/03/21 01:11 18 04/03/21 00:11 18 04/03/21 00:00 98.6 F 69 16 114/78 04/02/21 20:20 97.0 F L 67 18 105/55 99 04/02/21 16:03 98.4 F 69 18 93/47 100 Intake and Output 04/03/21 04/03/21 04/03/21 06:59 14:59 22:59 Intake Total 440 1040 Output Total 1100 Balance -660 1040 Intake: Oral 440 560 Intake, Free Water 480 Output: Urine 1100 Void 1100 Other: Total, Intake Amount 200 240 Total, Output Amount 500 # Voids Void 3 - Exam Breasts: Present: deferred Cardiovascular: Present: Regular rate, Normal S1, Normal S2 Lungs: Present: Clear to auscultation, Normal air movement Abdomen: Present: normal appearance, soft Vulva: both: normal Uterus: Present: normal, firm Extremities: Present: normal Incision: Present: normal, dry, intact - Labs Labs: Abnormal lab results 04/02/21 Range/Units 15:49 Hgb 7.8 L (10.1-14.3) gm/dl Hct 24.1 L (30.3-42.9) %
[2021-04-04] MEDS: IBUPROFEN 600 MG TAB PO PRN (05:21)
[2021-04-04] MEDS: oxyCODONE /ACETAMINOPHEN 5-325MG TAB PO PRN ×2 (08:46→14:25)
--- NOTE | 2021-04-04 08:46 | Discharge Summary ---
Providers - Providers Date of Admission: 04/02/21 04:25 Date of discharge: 04/04/21 Attending physician: AUTUMN COLMENARES Primary care physician: AUTUMN COLMENARES Hospitalization Reason for admission: rupture of membranes Delivery: Procedure: repeat low transverse Episiotomy: none Laceration: none Incision: dry, intact (no drainage or bleeding noted, steri-strips intact) Other procedures: none complications: none Discharge diagnosis: IUP at term delivered Almo baby: female Hospital course: 25y/o @ 38+4 weeks presents with the complaint of leakage of fluid and uterine contractions. The patient has history of 3 prior deliveries and a salpingectomy for an ectopic . Condition at discharge: Good Disposition: DC-[id number] TO HOME OR SELFCARE - Discharge Diagnoses (1) Status post repeat low transverse section Status: Acute (2) Anemia Status: Acute Qualifiers: Anemia type: iron deficiency Comment: Asymptomatic Increase iron rich foods into diet Plan - Discharge Medications Prescriptions: Ferrous Sulfate [Feosol 325 MG tab] 325 mg PO BID 30 Days #60 tablet Ibuprofen [Motrin 600 MG tab] 600 mg PO Q8H PRN 7 Days #21 tablet PRN Reason: Pain, Mild (1-3) - Provider Discharge Summary Activity: routine, no sex for 6 weeks, no heavy lifting 4 weeks, no strenuous exercise Diet: other (Iron rich diet) Instructions: routine Additional instructions: [] Smoking cessation referral if applicable(refer to patient education folder for contact #) [] Refer to [facility] Book[facility] Call your doctor immediately for: * Fever > 100.5 * Heavy vaginal bleeding ( >1 pad per hour) * Severe persistent headache * Shortness of breath * Reddened, hot, painful area to leg or breast * Drainage or odor from incision. * Keep incision clean and dry at all times and follow doctor's instructions regarding bathing/showering - Follow up plan Follow up: AUTUMN COLMENARES MD [Primary Care Provider] - 7 Days Forms: [facility] Discharge Summary
[2021-04-04] MEDS: FERROUS SULFATE 325 MG TAB PO SCH (09:07)
[2021-04-04 15:48] VITALS: BP 107/55
== END 2021-04-04 15:35 | disposition home or self-care (01) | DRG 766 ==
LOC: LAB 02:01 → APU 02:03 → LAB 04:25 → OB 08:58
PROVIDERS: ADMIT Obstetrics & Gynecology; ATTEND Obstetrics & Gynecology
PROC: 10D00Z1 Extraction of Products of Conception, Low, Open Approach (ICD-10-PCS; principal; 2021-04-02)
PROC: 0UB70ZZ Excision of Bilateral Fallopian Tubes, Open Approach (ICD-10-PCS; 2021-04-02)
DX: O99.02 Anemia complicating childbirth (principal); Z3A.38 38 weeks gestation of pregnancy; O34.211 Maternal care for low transverse scar from previous cesarean delivery; D50.9 Iron deficiency anemia, unspecified; Z20.822 Contact with and (suspected) exposure to COVID-19; Z91.040 Latex allergy status; Z79.899 Other long term (current) drug therapy; Z37.0 Single live birth; Z30.2 Encounter for sterilization
CPT/HCPCS: 36415; 59025; 84112; 85014; 85018; 85027; 86592; 86706; 86762; 86850; 86900; 86901; 87806; 88302; 96360; 96361; 96372; 96374; 96375; 99211; G0378; G0463; J0690; J1100; J1170; J1885; J2270; J2370; J2405; J2590; J2765; J3105; J3490; J7120; U0003